=== PATIENT | male | born 1965 | race Hispanic/Latino ===

== ENCOUNTER 2019-11-05 13:58 | Outpatient (CLI) | payer BC ==
--- NOTE | 2019-11-05 15:01 | RAD ---
XR Chest Pa Lat STANDARD HISTORY: Cough COMPARISON: 08/23/2004 FINDINGS: The heart size is normal. The lungs are well expanded without focal areas of consolidation, pneumothorax or pleural effusions. IMPRESSION: No radiographic evidence of acute cardiopulmonary process.
== END 2019-11-05 13:59 | disposition home or self-care (01) ==
LOC: BICRAD 13:58
PROVIDERS: ATTEND Family Medicine
DX: R05 Cough (principal)
CPT/HCPCS: 71046

== ENCOUNTER 2019-11-10 06:51 | Outpatient (CLI) | payer BC ==
--- NOTE | 2019-11-10 07:51 | ULT ---
ULTRASOUND ABDOMEN: HISTORY: Right upper quadrant abdominal pain FINDINGS: The liver demonstrates increased echogenicity consistent with fatty infiltration. No focal mass or in trahepatic ductal dilatation is seen. The spleen, gallbladder, kidneys and visualized portions of the pancreas, aorta and IVC appear normal . The common duct measures 5mm in diameter. No free fluid is seen. IMPRESSION: 1. Fatty liver 2. No evidence of cholelithiasis
== END 2019-11-10 06:52 | disposition home or self-care (01) ==
LOC: ULT 06:51
PROVIDERS: ATTEND Family Medicine
DX: R10.11 Right upper quadrant pain (principal); K76.0 Fatty (change of) liver, not elsewhere classified
CPT/HCPCS: 93975

== ENCOUNTER 2020-02-17 07:42 | Emergency (ER) | payer BC, OTHER ==
[2020-02-17] MEDS ORDERED: Ondansetron ODT 8 MG TAB ONE (08:10)
[2020-02-18 12:09] LABS: SARS-CoV-2 MS2 Positive; SARS-CoV-2 N Gene Positive; SARS-CoV-2 S Gene Positive; SARS-CoV-2 orf1ab Positive
== END 2020-02-17 08:30 | disposition home or self-care (01) ==
LOC: ERS 07:42
DX: U07.1 COVID-19 (principal); I10 Essential (primary) hypertension; Z87.891 Personal history of nicotine dependence; Z79.899 Other long term (current) drug therapy
CPT/HCPCS: 87635; 99284; Q0162; U0003

== ENCOUNTER 2021-09-15 05:51 | Emergency (ER) | payer BC ==
[2021-09-15] MEDS ORDERED: Ketorolac Tromethamine 30 MG/ML VIAL ONE (06:24)
[2021-09-15] MEDS ORDERED: Baclofen 10 MG TAB PO SCH (07:45)
[2021-09-15] MEDS ORDERED: HYDROcodone/Acetaminophen 10/325 mg Tablet ONE (08:18)
== END 2021-09-15 08:25 | disposition home or self-care (01) ==
LOC: ERS 05:51
DX: M79.651 Pain in right thigh (principal); I10 Essential (primary) hypertension; Z87.891 Personal history of nicotine dependence; Z79.899 Other long term (current) drug therapy
CPT/HCPCS: 96372; 99283; J1885